=== PATIENT | male | born 1975 | race Caucasian/White ===

== ENCOUNTER 2020-10-09 16:28 | Emergency (ER) | payer OTHER ==
[~2020-10-09] VITALS: Ht 172.7 cm; Wt 90.8 kg
[2020-10-09] MEDS ORDERED: IV NORMAL SALINE 1,000ML 1,000 ML IV ONE (17:15)
[2020-10-09] MEDS ORDERED: KETOROLAC 30 MG/ML VIAL. IVP ONE (17:15)
[2020-10-09] MEDS ORDERED: ONDANSETRON PF 4 MG/2 ML VIAL. IVP ONE (17:15)
[2020-10-09 19:10] LABS: CLARITY,URINE HAZY; COLOR,URINE YELLOW
[2020-10-09 19:11] LABS: BACTERIA,URINE 0 /HPF (0-FEW); BILIRUBIN,URINE NEG (NEG); GLUCOSE,URINE NEG (NEG); NITRITE,URINE NEG (NEG); RBC,URINE 20-40 /HPF (0-2); SQUAMOUS EPITHELIAL CELL,UR OCC /LPF; UROBILINOGEN,URINE 0.2 mg/dL (0.2 mg/dL); WBC,URINE OCC /HPF (0-4)
[2020-10-09] MEDS ORDERED: MORPHINE SULFATE 4 MG/ML DISP.SYRIN. IV ONE ×2 (19:15→21:00)
--- NOTE | 2020-10-09 19:34 | RAD ---
Abdominal and Pelvis CT, Without Contrast: History: Reason: LEFT FLANK PAIN, STONE STUDY / Spl. Instructions: / History: Comparison: None. Procedure: Axial images are obtained of the abdomen and pelvis, without IV or oral contrast. Oral Contrast: No Findings: Evaluation of solid organs is limited without contrast. Liver: Normal. Spleen: Normal. Pancreas: Normal. Adrenal Glands: Normal. Kidneys: There is moderate left hydronephrosis and left hydroureter secondary to a 7 mm stone in the distal left ureter. There are 2 small nonobstructive stones in the left renal pelvis. There is no free air or free fluid. There is no lymphadenopathy. The urinary bladder appears normal. There is no pericolonic inflammation identified. The appendix is normal. The gallbladder is normal. Impression: Moderate left hydronephrosis and left hydroureter secondary to a 7 mm stone in the distal left ureter . End impression PQRS Compliance Statement: One or more of the following individualized dose reduction techniques were utilized for this examinat ion: 1. Automated exposure control 2. Adjustment of the mA and/or kV according to patient size 3. Use of iterative reconstruction technique Electronically signed by: Dillon Jarrett III, MD (10/09/2020 7:31 PM) [facility]
--- NOTE | 2020-10-09 20:05 | PHYS DOC ---
Past History Past Medical History: Kidney Stones (ASHELY DIAZ APRN) Past Surgical History: No Surgical History (ASHELY DIAZ APRN) Alcohol Use: Occasionally (ASHELY DIAZ APRN) Adult General Chief Complaint Chief Complaint: FLANK PAIN HPI HPI Patient is a 45-year-old male presents to the emergency department complaining of started approximately 2:00 this afternoon. Patient states he has a long history of kidney stones and this presentation is similar to his past kidney stone exacerbations. Patient complains of an 8/10 on a 1-10 pain scale. Pat ient states he has nausea but no vomiting. Patient denies abdominal pain. Patient states his pain is located on the left flank and left low back. Patient denies seeing any blood in his urine. Patient denies constipation or diarrhea. Patient denies chest pain or shortness of breath. Patient denies visual changes, denies cough or congestion. Patient states he has no known drug allergies, takes trazodone for sleep disorder. Patient reports a surgical history of bilateral ureter stents, and a hernia repair. Patient reports he has not had a kidney stone flareup for the past 2 years. Patient denies any other physical complaints or physical concerns. (ASHELY DIAZ APRN) Review of Systems Review of Systems 14 body systems of review of systems have been reviewed. See HPI for pertinent positives and negative responses, otherwise all other systems are negative, nonpertinent or noncontributory. (ASHELY DIAZ APRN) Current Medications Current Medications Current Medications Medications (Trade) Dose Ordered Sig/Nazario Start Time Stop Time Status Last Admin Dose Admin Ketorolac Tromethamine (Toradol 30mg Vial) 30 mg 1X ONCE 10/09/20 17:15 10/09/20 17:19 DC 10/09/20 17:24 30 MG Morphine Sulfate (Morphine 4mg Syringe) 4 mg 1X ONCE 10/09/20 19:15 10/09/20 19:34 DC 10/09/20 19:19 4 MG Ondansetron HCl (Zofran) 4 mg 1X ONCE 10/09/20 17:15 10/09/20 17:19 DC 10/09/20 17:24 4 MG Sodium Chloride 1,000 ml @ 1,000 mls/hr 1X ONCE 10/09/20 17:15 10/09/20 18:14 DC 10/09/20 17:24 1,000 MLS/HR (ASHELY DIAZ APRN) Allergies Allergies Allergies Coded Allergies Type Severity Reaction Last Updated Verified No Known Drug Allergies 10/09/20 No (ASHELY DIAZ APRN) Physical Exam Physical Exam Constitutional: Well developed, well nourished, no acute distress, non-toxic appearance. Patient anxious, appears uncomfortable. HENT: Normocephalic, atraumatic, bilateral external ears normal, oropharynx moist, no oral exudates, nose normal. Eyes: PERRLA, EOMI, conjunctiva normal, no discharge. Neck: Normal range of motion, no tenderness, supple, no stridor. Cardiovascular:Heart rate regular rhythm, no murmur, heart sounds S1-S2 to aus cultation. Lungs & Thorax: Bilateral breath sounds clear to auscultation all lung perez, no adventitious lung sounds appreciated. Abdomen: Bowel sounds normal, soft, no tenderness, no masses, no pulsatile masses. Skin: Warm, dry, no erythema, no rash. Back: No midline spinal tenderness appreciated, positive left-sided CVA tenderness, positive left lumbar area tenderness to palpation, left flank pain to palpation. Extremities: No tenderness, no cyanosis, no clubbing, ROM intact, no edema. Neurologic: Alert and oriented X 3, normal motor function, normal sensory function, no focal deficits noted. Psychologic: Affect normal, judgement normal, mood normal. (ASHELY DIAZ APRN) Current Patient Data Vital Signs Vital Signs Date Time Temp Pulse Resp B/P (MAP) Pulse Ox O2 Delivery O2 Flow Rate FiO2 10/09/20 19:19 16 98 10/09/20 17:04 99.0 61 179/110 (133) Room Air Lab Results Laboratory Tests Test 10/09/20 18:29 Urine Collection Type Unknown Urine Color Yellow Urine Clarity Hazy Urine pH 7.0 Urine Specific Rogers 1.025 Urine Protein 30 mg/dl (NEG-TRACE) Urine Glucose (UA) Neg mg/dL (NEG) Urine Ketones (Stick) Trace mg/dL (NEG) Urine Blood Large (NEG) Urine Nitrite Neg (NEG) Urine Bilirubin Neg (NEG) Urine Urobilinogen Dipstick 0.2 mg/dL (0.2 mg/dL) Urine Leukocyte Esterase Neg (NEG) Urine RBC 20-40 /HPF (0-2) Urine WBC Occ /HPF (0-4) Urine Squamous Epithelial Cells Occ /LPF Urine Bacteria 0 /HPF (0-FEW) (ASHELY DIAZ APRN) EKG EKG [] (ASHELY DIAZ APRN) Radiology/Procedures Radiology/Procedures PATIENT: WIL LUZ ACCOUNT: [id number] : 1975 LOCATION: ER AGE: 45 SEX: M EXAM STATUS: REG ER ORD. PHYSICIAN: ASHELY DIAZ APRN REASON: LEFT FLANK PAIN, STONE STUDY PROCEDURE: CT ABDOMEN PELVIS WO CONTRAST Abdominal and Pelvis CT, Without Contrast: History: Reason: LEFT FLANK PAIN, STONE STUDY / Spl. Instructions: / History: Comparison: None. Procedure: Axial images are obtained of the abdomen and pelvis, without IV or oral contrast. Oral Contrast: No Findings: Evaluation of solid organs is limited without contrast. Liver: Normal. Spleen: Normal. Pancreas: Normal. Adrenal Glands: Normal. Kidneys: There is moderate left hydronephrosis and left hydroureter secondary to a 7 mm stone in the distal left ureter. There are 2 small nonobstructive stones in the left renal pelvis. There is no free air or free fluid. There is no lymphadenopathy. The urinary bladder appears normal. There is no pericolonic inflammation identified. The appendix is normal. The gallbladder is normal. Impression: Moderate left hydronephrosis and left hydroureter secondary to a 7 mm stone in the distal left ureter. End impression PQRS Compliance Statement: One or more of the following individualized dose reduction techniques were utilized for this examination: 1. Automated exposure control 2. Adjustment of the mA and/or kV according to patient size 3. Use of iterative reconstruction technique Electronically signed by: Mckenzie Liang III, MD (10/09/2020 7:31 PM) [facility] DICTATED AND SIGNED BY: MCKENZIE LIANG III, MD DATE: 10/09/201927 CC: ASHELY DIAZ APRN; PCP,NO ~MTH0 0 (ASHELY DIAZ APRN) Heart Score C/O Chest Pain: No Risk Factors: Risk Factors: DM, Current or recent (<one month) smoker, HTN, HLP, family history of CAD, obesity. Risk Scores: Risk Factors: DM, Current or recent (<one month) smoker, HTN, HLP, family history of CAD, obesity. (ASHELY DIAZ APRN) Course & Med Decision Making Course & Med Decision Making Pertinent Labs and Imaging studies reviewed. (See chart for details) 45-year-old male, vital signs reviewed, presents emergency department concerning for kidney stone pain. Physical examination was consistent with kidney stone pain. CBC, CMP, urinalysis was ordered, saline lock, 1 L normal saline, 4 mg IV Zofran, 30 mg IV Toradol given for 8/10 pain on a 1-10 pain scale. Patient's urine showed large amount of blood, CT abdomen pelvis without contrast for stone study was ordered. Upon reevaluation of the patient, patient reports his pain is down to a 5/10. Will give 4 mg of morphine IV. CT abdomen pelvis concerning for hydroureter, hydronephrosis, 7 mm stone in the distal left ureter per house radiologist interpretation. Upon reevaluation of the patient, patient states his pain is still about a 5/10. Will give 4 mg of morphine IV. Upon reevaluation of the patient, patient states his pain is still about a 5/10. Discussed with patient admission to hospital related to size of stone being 7 mm and intractable pain. Patient's labs were otherwise unremarkable. Patient is amendable to admission to hospital. Called and discussed patient case with transfer line, Shawn from transfer line stated he would report case with on-call urologist at [facility] and will return call soon. The patient's CT images were placed on the cloud by radiology for [facility] to review. Discusse with patient admission to [facility], patient is amenable to this plan. Patient reports his pain is still a 5/10 pain, will give 1 mg Dilaudid IV. transfer center Finish Cleaner Shawn called back and advised urologist specialist Dr. BRADFORD from [facility] has accepted patient in transfer for admission for left hydronephrosis with hydroureter and distal 7 mm stone. EMTALA forms and transfer forms were reviewed and signed by ED attending Dr. Lorenzo. Patient will be transferred to [facility] hospital. (ASHELY DIAZ APRN) Course & Med Decision Making Did not see or evaluate patient. Discussed patient with ARCHITECTURE TECHNICIAN. Agree with ARCHITECTURE TECHNICIAN's work-up and disposition. (MARGARITA LORENZO MD) Dragon Disclaimer Dragon Disclaimer This electronic medical record was generated, in whole or in part, using a voice recognition dictation system. (ASHELY DIAZ APRN) Departure Departure: Impression: Primary Impression: Hydronephrosis Additional Impressions: Hydroureter, left Kidney stone on left side Disposition: 02 DC/TRF OTHER SHORT TERM HOS (Patient admitted to [facility], Dr. BRADFORD has accepted patient in transfer.) Condition: STABLE Referrals: PCP,NO (PCP) Problem Qualifiers Primary Impression: Hydronephrosis Hydronephrosis type: with renal calculous obstruction Qualified Codes: N13.2 - Hydronephrosis with renal and ureteral calculous obstruction ASHELY DIAZ APRN Oct 09, 2020 20:05 MARGARITA LORENZO MD Oct 09, 2020 22:06
[2020-10-09 20:18] LABS: CREATININE 0.9 mg/dL (0.7-1.3); GFR 92.1; POTASSIUM 3.5 mmol/L (3.5-5.1)
[2020-10-09 20:24] LABS: ALBUMIN/GLOBULIN RATIO 1.2 (1.0-1.7); TOTAL BILIRUBIN 0.4 mg/dL (0.2-1.0); TOTAL PROTEIN 7.4 g/dL (6.4-8.2)
[2020-10-09 20:28] LABS: BASO % 1 % (0-3); EOS # 0.3 x10^3/uL (0.0-0.7); EOS % 3 % (0-3); HEMATOCRIT 43.5 % (39.0-53.0); HEMOGLOBIN 14.6 g/dL (13.0-17.5); LYMPH % 23 % (24-48); MEAN CORPUSCULAR HEMOGLOBIN 29 pg (25-35); MEAN CORPUSCULAR HGB CONC 34 g/dL (31-37); MEAN CORPUSCULAR VOLUME 86 fL (79-100); MONO # 0.6 x10^3/uL (0.0-1.1); MONO % 6 % (0-9); NEUT # 5.9 x10^3uL (1.8-7.7); NEUT % 67 % (31-73); PLATELET COUNT 248 x10^3/uL (140-400); RED BLOOD COUNT 5.05 x10^6/uL (4.30-5.70); RED CELL DISTRIBUTION WIDTH 13.2 % (11.5-14.5); WHITE BLOOD COUNT 8.7 x10^3/uL (4.0-11.0)
[2020-10-09] MEDS ORDERED: HYDROmorphone PF 1 MG/ML DISP.SYRIN IVP ONE (21:45)
[2020-10-09] MEDS ORDERED: HYDROmorphone PF 1 MG/ML DISP.SYRIN ONE (21:54)
[2020-10-09 22:11] VITALS: BP 158/88
== END 2020-10-09 23:05 | disposition short-term general hospital (02) ==
LOC: ER 16:28
DX: N13.2 Hydronephrosis with renal and ureteral calculous obstruction (principal)
CPT/HCPCS: 36415; 74176; 80053; 81001; 85025; 96361; 96374; 96375; 96376; 99284; J1170; J1885; J2270; J2405; J7030

== ENCOUNTER 2021-05-01 17:40 | Inpatient (IN) | payer OTHER ==
[~2021-05-01] VITALS: Ht 170.2 cm; Wt 91.9 kg
--- NOTE | 2021-05-01 18:01 | PHYS DOC ---
Past History Past Medical History: Kidney Stones Past Surgical History: No Surgical History Alcohol Use: Occasionally General Adult HPI: HPI: ".. I got diagnosis of COVID on the 04/24.. But I am not doing any better..." Patient is a 46 year old male who presents with above hx and coughing, diarrhea, malasie , subject fever, arthralgia , myalgia. Hx. COVID + 20th. Patient recently had a trip to [place]. Patient denies any history immunosuppression, did not get COVID vaccination this season. Patient has not gotten the flu vaccination this season. Patient denies any history of immunosuppression. Patient does vape. Patient denies any previous health history issues. Patient is mildly hypoxic on room air 80s. P:t. follows with Dr. Jackson. Review of Systems: Review of Systems: Constitutional: Subjective complaints of fever or chills Eyes: Denies change in visual acuity HENT: Denies nasal congestion or sore throat Respiratory: Complains of a nonproductive cough and shortness of breath Cardiovascular: Denies chest pain or edema GI: Denies abdominal pain, nausea, vomiting, bloody stools or diarrhea : Denies dysuria Musculoskeletal: Denies back pain or joint pain. Complains of generalized fatigue Integument: Denies rash Neurologic: Denies headache, focal weakness or sensory changes Endocrine: Denies polyuria or polydipsia Lymphatic: Denies swollen glands Psychiatric: Denies depression or anxiety Family History: Family History: Noncontributory to presentation Current Medications: Current Meds: See nursing for home meds Allergies: Allergies: Allergies Coded Allergies Type Severity Reaction Last Updated Verified No Known Drug Allergies 10/09/20 No Physical Exam: PE: Constitutional: Moderate acute distress, non-toxic appearance. [] HENT: Normocephalic, atraumatic, bilateral external ears normal, oropharynx moist, no oral exudates, nose swollen turbinates and clear rhinorrhea Eyes: PERRLA, EOMI, conjunctiva normal, no discharge. [] Neck: Normal range of motion, no tenderness, supple, no stridor. [] Cardiovascular:Tachycardia Heart rate regular rhythm, no murmur [] Lungs & Thorax: Bilateral breath sounds equal apex with scattered wheezes on auscultation [] does have a nonproductive cough Abdomen: Bowel sounds normal, soft, no tenderness, no masses, no pulsatile masses. [] Skin: Warm, dry, no erythema, no rash. [] Back: No tenderness, no CVA tenderness. [] Extremities: No tenderness, no cyanosis, no clubbing, ROM intact, no edema. [] No cording appreciated Neurologic: Alert and oriented X 3, normal motor function, normal sensory function, no focal deficits noted. [] Psychologic: Affect anxious, judgement normal, mood normal. [] EKG: EKG: My interpretation EKG shows a sinus rhythm at 83 bpm no acute morphology. Time of EKG is 1821 hrs. [] Radiology/Procedures: Radiology/Procedures: [place] [address] IMAGING REPORT Signed PATIENT: WIL LUZ ACCOUNT: [id number] : 1975 LOCATION: ER AGE: 46 SEX: M EXAM STATUS: REG ER ORD. PHYSICIAN: EVA BOCANEGRA MD REASON: +COVID 04/24. C/P, chills, SOB Omni 350 100cc PROCEDURE: CT ANGIOGRAPHY CHEST EXAM: CT chest with contrast - pulmonary embolus protocol CLINICAL HISTORY: Reason: +COVID 04/24. C/P, chills, SOB Omni 350 100cc / Spl. Instructions: / History: . COMPARISON: Similar chest radiograph TECHNIQUE: CT of the chest following the administration of 100 cc of Omni intravenous contrast during the pulmonary arterial phase. Axial, coronal and sagittal reformatted images were generated including MIP images. ---PQRS compliance statement - One or more of the following individualized dose reduction techniques were utilized for this study: 1. Automated exposure control 2. Adjustment of the mA and/or kV according to patient size 3. Use of iterative reconstruction technique--- FINDINGS: CHEST: Diagnostic quality: Adequate. Pulmonary emboli: No pulmonary emboli to the level of the segmental branches. More peripheral vessels are not well assessed. Right heart strain: None Pulmonary arteries: Normal in caliber. Thyroid gland is unremarkable. No pathologically enlarged supraclavicular or axillary adenopathy. Heart size is normal. No pericardial effusion. No pathologically enlarged mediastinal or hilar lymph nodes. The central airway is patent. Esophagus is unremarkable. There are scattered bilateral patchy and confluent glass and consolidative opacities. No pneumothorax or pleural effusion. Visualized Upper abdomen: Visualized portions of the upper abdomen are unremarkable. Bones: No evidence of acute or suspicious osseous abnormality. IMPRESSION: 1. No evidence of pulmonary embolism to the level of the segmental pulmonary arteries. 2. Multifocal airspace disease consistent with known Covid pneumonia Electronically signed by: Geraldo Aguilar DO (05/01/2021 8:40 PM) [facility] DICTATED AND SIGNED BY: GERALDO AGUILAR DO DATE: 05/01/212028 CC: GRISEL JACKSON MD; EVA BOCANEGRA MD ~MTH0 0 [][place] [address] IMAGING REPORT Signed PATIENT: WIL LUZ ACCOUNT: [id number] : 1975 LOCATION: ER AGE: 46 SEX: M EXAM STATUS: REG ER ORD. PHYSICIAN: EVA BOCANEGRA MD REASON: coughing, COVID PROCEDURE: PORTABLE CHEST 1V EXAMINATION: Chest radiograph. VIEWS: Single AP view of the chest COMPARISON: None INDICATION:46 years, Male, Covid. FINDINGS: Normal cardiomediastinal silhouette. Scattered patchy and confluent bilateral airspace opacities predominantly the middle and lower lobes. No pleural effusion or pneumothorax. No acute osseous process. IMPRESSION: Findings consistent with multifocal atypical viral pneumonia Electronically signed by: Geraldo Aguilar DO (05/01/2021 6:25 PM) [facility] DICTATED AND SIGNED BY: GERALDO AGUILAR DO DATE: 05/01/211823 CC: GRISEL JACKSON MD; EVA BOCANEGRA MD ~MTH0 0 Heart Score: C/O Chest Pain: No HEART Score for Chest Pain: HEART Score for Chest Pain Response (Comments) Value History Slighlty/Non-Suspicious 0 ECG Normal 0 Age < 45 0 Risk Factors 1 or 2 Risk Factors 1 Troponin < Normal Limit 0 Total 1 Risk Factors: Risk Factors: DM, Current or recent (<one month) smoker, HTN, HLP, family histo ry of CAD, obesity. Risk Scores: Score 0 - 3: 2.5% MACE over next 6 weeks - Discharge Home Score 4 - 6: 20.3% MACE over next 6 weeks - Admit for Clinical Observation Score 7 - 10: 72.7% MACE over next 6 weeks - Early Invasive Strategies Course & Med Decision Making: Course & Med Decision Making Pertinent Labs and Imaging studies reviewed. (See chart for details) Discussed presentation, testing and tx plan with Dr. Dupree - advised to admit to his service and start Remdesivir. Order by pharmacy at time of admit. Nursing supervisor contact and service clerks- she did nok know how to mix it, and would have to wait until morning. Nursing supervisor contact and service clerks agree to check pharmacy. No Remdesivir found. Call placed to [facility] pharmacy- plan they will mix it and quick silver to transport to [place]. 0300 hrs. Pharmacy at [facility] advised picked up medication at 3:40 AM for transport to [place]. Impression: 1. COVID Pneumonia 2. Elevated AST 150 and ALT 176 3. Leukopenia 3.3 4. Anemia 127 5 Elevated Lipase 449 6.Elevated D-dimer 0.74 7. Respiratory Failure - Hypoxi 8. Elevated CK = 2,254 [] Dragon Disclaimer: Dragon Disclaimer: This electronic medical record was generated, in whole or in part, using a voice recognition dictation system. Departure Departure: Referrals: GRISEL JACKSON MD (PCP) Attending Signature Attending Signature I have participated in the care of this patient and I have reviewed and agree with all pertinent clinical information above including history, exam, and recommendations. EVA BOCANEGRA MD May 01, 2021 18:01
[2021-05-01] MEDS ORDERED: KETOROLAC 30 MG/ML VIAL. IVP ONE (18:15)
[2021-05-01] MEDS ORDERED: IV RINGERS SOLUTION,LACTATED 1,000 ML IV SCH (18:15)
[2021-05-01] MEDS ORDERED: ALBUTEROL SULFATE 8GM INHALER. INH ONE (18:15)
--- NOTE | 2021-05-01 18:27 | RAD ---
EXAMINATION: Chest radiograph. VIEWS: Single AP view of the chest COMPARISON: None INDICATION:46 years, Male, Covid. FINDINGS: Normal cardiomediastinal silhouette. Scattered patchy and confluent bilateral airspace opacities pred ominantly the middle and lower lobes. No pleural effusion or pneumothorax. No acute osseous process. IMPRESSION: Findings consistent with multifocal atypical viral pneumonia Electronically signed by: Douglas Aguilar DO (05/01/2021 6:25 PM) [facility]
--- NOTE | 2021-05-01 18:39 | EKG ---
[address] [address] Test Date: 2021-05-01 Test Time: 18:21:48 Pat Name: WIL LUZ Department: Room: Gender: M Steward/Stewardess Second Class: [place] : 1975 Requested By: EVA BOCANEGRA Order Number: [id number] Reading MD: Kaushik Estevez Measurements Intervals [place] Rate: 83 P: 55 NC: 130 QRS: 20 QRSD: 82 T: 29 QT: 362 QTc: 426 Interpretive Statements SINUS RHYTHM NORMAL ECG RI6.02 No previous ECG available for comparison Electronically Signed On 05-03-2021 13:33:27 CDT by Kaushik Estevez
[2021-05-01 19:11] LABS: BASO % 0 % (0-3); EOS % 0 % (0-3); HEMATOCRIT 38.7 % (39.0-53.0); HEMOGLOBIN 12.7 g/dL (13.0-17.5); LYMPH # 0.7 x10^3/uL (1.0-4.8); LYMPH % 20 % (24-48); MEAN CORPUSCULAR HEMOGLOBIN 27 pg (25-35); MEAN CORPUSCULAR HGB CONC 33 g/dL (31-37); MEAN CORPUSCULAR VOLUME 83 fL (79-100); MONO # 0.1 x10^3/uL (0.0-1.1); MONO % 4 % (0-9); NEUT # 2.5 x10^3uL (1.8-7.7); NEUT % 75 % (31-73); PLATELET COUNT 181 x10^3/uL (140-400); RED BLOOD COUNT 4.64 x10^6/uL (4.30-5.70); RED CELL DISTRIBUTION WIDTH 13.5 % (11.5-14.5); WHITE BLOOD COUNT 3.3 x10^3/uL (4.0-11.0)
[2021-05-01 19:20] LABS: CALCIUM 8.2 mg/dL (8.5-10.1); CREATININE 0.9 mg/dL (0.7-1.3); GFR 91.7; POTASSIUM 3.9 mmol/L (3.5-5.1)
[2021-05-01 19:21] LABS: BARBITURATES NEG (NEG); BENZODIAZEPINES NEG (NEG); CANNABINOIDS POS (NEG); COCAINE NEG (NEG); METHADONE NEG (NEG); OPIATES POS (NEG); PHENCYCLIDINE NEG (NEG)
[2021-05-01 19:23] LABS: BGAS PH 7.43 (7.35-7.46)
[2021-05-01 19:26] LABS: BACTERIA,URINE 0 /HPF (0-FEW); BILIRUBIN,URINE NEG (NEG); CLARITY,URINE CLEAR; COLOR,URINE YELLOW; GLUCOSE,URINE NEG (NEG); NITRITE,URINE NEG (NEG); RBC,URINE RARE /HPF (0-2); SQUAMOUS EPITHELIAL CELL,UR OCC /LPF; UROBILINOGEN,URINE 0.2 mg/dL (0.2 mg/dL); WBC,URINE OCC /HPF (0-4)
[2021-05-01 19:30] LABS: AMPHETAMINE/METHAMPHETAMINE NEG (NEG)
[2021-05-01] MEDS ORDERED: IOHEXOL 350 MG/ML 100 ML VIAL. IV ONE (19:30)
[2021-05-01] MEDS ORDERED: ENOXAPARIN ** NOTE DOSE ** SYRINGE SQ ONE (19:30)
[2021-05-01 19:34] LABS: ALBUMIN 3.4 g/dL (3.4-5.0); DIRECT BILIRUBIN 0.1 mg/dL (0.0-0.2); MAGNESIUM 1.8 mg/dL (1.8-2.4); TOTAL BILIRUBIN 0.2 mg/dL (0.2-1.0); TOTAL PROTEIN 7.3 g/dL (6.4-8.2)
--- NOTE | 2021-05-01 20:42 | RAD ---
EXAM: CT chest with contrast - pulmonary embolus protocol CLINICAL HISTORY: Reason: +COVID 04/24. C/P, chills, SOB Omni 350 100cc / Spl. Instructions: / His tory: . COMPARISON: Similar chest radiograph TECHNIQUE: CT of the chest following the administration of 100 cc of Omni intravenous contrast during the pulmonary arterial phase. Axial, coronal and sagittal reformatted images were generated includin g MIP images. ---PQRS compliance statement - One or more of the following individualized dose reduction techniques were utilized for this study: 1. Automated exposure control 2. Adjustment of the mA and/or kV according to patient size 3. Use of iterative reconstruction technique--- FINDINGS: CHEST: Diagnostic quality: Adequate. Pulmonary emboli: No pulmonary emboli to the level of the segmental branches. More peripheral vessel s are not well assessed. Right heart strain: None Pulmonary arteries: Normal in caliber. Thyroid gland is unremarkable. No pathologically enlarged supraclavicular or axillary adenopathy. Hea rt size is normal. No pericardial effusion. No pathologically enlarged mediastinal or hilar lymph nod es. The central airway is patent. Esophagus is unremarkable. There are scattered bilateral patchy and confluent glass and consolidative opacities. No pneumothorax or pleural effusion. Visualized Upper abdomen: Visualized portions of the upper abdomen are unremarkable. Bones: No evidence of acute or suspicious osseous abnormality. IMPRESSION: 1. No evidence of pulmonary embolism to the level of the segmental pulmonary arteries. 2. Multifocal airspace disease consistent with known Covid pneumonia Electronically signed by: Douglas Aguilar DO (05/01/2021 8:40 PM) [facility]
[2021-05-01] MEDS ORDERED: ONDANSETRON PF 4 MG/2 ML VIAL. IVP PRN (21:15)
[2021-05-01] MEDS ORDERED: ACETAMINOPHEN 325 MG TABLET PO PRN (21:15)
[2021-05-02] MEDS ORDERED: BUSP30TA PO (00:24)
[2021-05-02] MEDS ORDERED: LISI10TA16 PO (00:24)
[2021-05-02] MEDS ORDERED: HYDR50TA PO (00:24)
[2021-05-02] MEDS ORDERED: TRAZ-125 PO ×2 (00:24→19:42)
[2021-05-02] MEDS ORDERED: PRAZ1CAP2 PO (00:24)
[2021-05-02] MEDS ORDERED: SERT25TA PO (00:24)
[2021-05-02] MEDS ORDERED: KETOROLAC 30 MG/ML VIAL. IVP ONE (00:45)
[2021-05-02] MEDS ORDERED: diphenhydrAMINE 50 MG/ML VIAL IVP ONE (01:00)
[2021-05-02] MEDS ORDERED: REMDESIVIR LOAD in IV NORMAL SALINE 250ML TV IV ONE (01:00)
[2021-05-02] MEDS ORDERED: PROCHLORPERAZINE 10 MG/2 ML VIAL. IV ONE (01:00)
[2021-05-02] MEDS ORDERED: PRAZOSIN 1 MG CAPSULE. PO SCH (04:26)
[2021-05-02] MEDS ORDERED: traZODone 50 MG TABLET. PO ONE (04:30)
[2021-05-02] MEDS: ALBUTEROL SULFATE 8GM INHALER. INH SCH ×4 (09:00→20:30)
[2021-05-02 09:17] LABS: CALCIUM 7.8 mg/dL (8.5-10.1); CREATININE 0.9 mg/dL (0.7-1.3); GFR 91.7; POTASSIUM 3.8 mmol/L (3.5-5.1)
[2021-05-02 09:19] LABS: BASO % 0 % (0-3); EOS % 0 % (0-3); HEMATOCRIT 36.4 % (39.0-53.0); HEMOGLOBIN 11.9 g/dL (13.0-17.5); LYMPH # 0.6 x10^3/uL (1.0-4.8); LYMPH % 17 % (24-48); MEAN CORPUSCULAR HEMOGLOBIN 27 pg (25-35); MEAN CORPUSCULAR HGB CONC 33 g/dL (31-37); MEAN CORPUSCULAR VOLUME 83 fL (79-100); MONO # 0.2 x10^3/uL (0.0-1.1); MONO % 5 % (0-9); NEUT # 2.8 x10^3uL (1.8-7.7); NEUT % 78 % (31-73); PLATELET COUNT 174 x10^3/uL (140-400); RED CELL DISTRIBUTION WIDTH 13.4 % (11.5-14.5); WHITE BLOOD COUNT 3.6 x10^3/uL (4.0-11.0)
[2021-05-02] MEDS ORDERED: IV RINGERS SOLUTION,LACTATED 1,000 ML IV ONE (15:45)
[2021-05-02] MEDS ORDERED: DIPHENOXYLATE/ATROPINE TABLET. PO ONE (15:45)
[2021-05-02] MEDS ORDERED: ONDANSETRON PF 4 MG/2 ML VIAL. IVP PRN (17:45)
[2021-05-02 18:46] VITALS: BP 142/71
--- NOTE | 2021-05-02 18:56 | NUR ---
The patient, WIL LUZ, 46 y/o, M admitted by PAYAM MARINA MD, was given written information regarding hospital policies, unit procedures and contact persons. Valuables were checked and recorded. Patient is alert and oriented. Currently in the bed with side rails up X's 2 with call light in reach. [facility]
[2021-05-02] MEDS: ACETAMINOPHEN 325 MG TABLET PO PRN (18:58)
[2021-05-02 19:35] VITALS: BP 136/70
[2021-05-02] MEDS ORDERED: HYDR25TA PO (19:42)
[2021-05-02] MEDS ORDERED: BUSP5TAB PO (19:42)
[2021-05-02] MEDS ORDERED: LISI20TA18 PO (19:42)
[2021-05-02] MEDS ORDERED: PRAZ2CAP2 PO (19:42)
[2021-05-02] MEDS ORDERED: SERT50TA PO (19:42)
[2021-05-02 20:00] VITALS: BP 124/71
[2021-05-02] MEDS ORDERED: CHOLECALCIFEROL (VITAMIN D3) 50,000 UNIT CAPSULE PO SCH (20:00)
[2021-05-02] MEDS ORDERED: DEXAMETHASONE SOD PHOS 10 MG/ML VIAL. IVP ONE (20:00)
[2021-05-02] MEDS ORDERED: AZITHROMYCIN 500 MG in IV NORMAL SALINE 250ML 250 ML IV ONE (20:00)
[2021-05-02] MEDS: IV RINGERS SOLUTION,LACTATED 1,000 ML IV SCH (20:28)
[2021-05-02] MEDS: ENOXAPARIN 40 MG/0.4 ML SYRINGE. SQ SCH (20:29)
[2021-05-02] MEDS: PRAZOSIN 1 MG CAPSULE. PO SCH (20:29)
[2021-05-02] MEDS: ASCORBIC ACID 1,000 MG TABLET PO SCH (20:29)
[2021-05-02] MEDS: FAMOTIDINE 20 MG TABLET PO SCH (20:29)
[2021-05-02] MEDS: busPIRone 5 MG TABLET. PO SCH (20:29)
[2021-05-02] MEDS ORDERED: AZITHROMYCIN 250 MG TABLET. PO ONE (20:30)
[2021-05-02] MEDS: hydrOXYzine HCL 25 MG TABLET PO SCH (20:30)
[2021-05-02] MEDS: traZODone 100 MG TABLET. PO SCH (20:30)
--- NOTE | 2021-05-02 21:00 | NUR ---
Pt awake in bed at change of shift, recently admitted to unit from ER after being a ER hold for almost 24hrs. Pt is A&Ox4, able to answer questions appropriately. Pt was recently in [place] for Etoh rehab and returned back to [place] on 04/19. A few days after his return he developed fevers, SOA, N/V, loss of taste and diarrhea. Pt was tested for Covid and found to be positive on 04/24. Admission assessment completed. Pt with 102.6 fever noted at change of shift, PRN Tylenol given with improvement noted. Pt currently on 4L of O2 to keep sat >92%. Dr Dupree called for admission orders. Pt started on antibiotics (Zithromax & Rocephin), IV Dexamethasone, Lovenox and Remdesivir. Home medications reordered. Pt noted to have productive cough and c/o SOA with minimal activity. Pt ate HS snack independently and took HS medications without difficulty. Pt lives at home with his 2 dogs in apartment. Pt did not receive his Covid vaccine or had his flu shot yet this year. Pt denies smoking cigarettes but dose admit to marijuana use. Lovenox for VTE. CM and Dietary consulted. POC reviewed with pt, understanding verbalized.
[2021-05-02 21:05] VITALS: BP 127/76
[2021-05-02] MEDS: REMDESIVIR 100mg in NORMAL SALINE 250ML X 4 DAYS IV SCH (21:16)
[2021-05-02 22:00] VITALS: BP 107/63
[2021-05-03] VITALS (7 sets, daily range): BP systolic 103–145; BP diastolic 65–85
[2021-05-03 06:12] LABS: BASO % 0 % (0-3); EOS % 0 % (0-3); HEMATOCRIT 37.1 % (39.0-53.0); HEMOGLOBIN 12.1 g/dL (13.0-17.5); LYMPH # 0.4 x10^3/uL (1.0-4.8); LYMPH % 9 % (24-48); MEAN CORPUSCULAR HEMOGLOBIN 27 pg (25-35); MEAN CORPUSCULAR HGB CONC 33 g/dL (31-37); MEAN CORPUSCULAR VOLUME 83 fL (79-100); MONO # 0.2 x10^3/uL (0.0-1.1); MONO % 4 % (0-9); NEUT # 4.1 x10^3uL (1.8-7.7); NEUT % 87 % (31-73); PLATELET COUNT 209 x10^3/uL (140-400); RED BLOOD COUNT 4.49 x10^6/uL (4.30-5.70); RED CELL DISTRIBUTION WIDTH 13.5 % (11.5-14.5); WHITE BLOOD COUNT 4.7 x10^3/uL (4.0-11.0)
[2021-05-03 06:30] LABS: ALBUMIN 2.7 g/dL (3.4-5.0); ALBUMIN/GLOBULIN RATIO 0.7 (1.0-1.7); CALCIUM 8.1 mg/dL (8.5-10.1); CREATININE 0.9 mg/dL (0.7-1.3); GFR 91.7; POTASSIUM 4.1 mmol/L (3.5-5.1); TOTAL BILIRUBIN 0.2 mg/dL (0.2-1.0); TOTAL PROTEIN 6.4 g/dL (6.4-8.2)
[2021-05-03] MEDS: IV RINGERS SOLUTION,LACTATED 1,000 ML IV SCH (06:41)
[2021-05-03] MEDS: ALBUTEROL SULFATE 8GM INHALER. INH SCH ×4 (09:00→20:01)
[2021-05-03] MEDS: AZITHROMYCIN 250 MG TABLET. PO SCH (10:26)
[2021-05-03] MEDS: SERTRALINE 50 MG TABLET. PO SCH (10:27)
[2021-05-03] MEDS: ASCORBIC ACID 1,000 MG TABLET PO SCH (10:27)
[2021-05-03] MEDS: LISINOPRIL 20 MG TABLET PO SCH (10:27)
[2021-05-03] MEDS: BUDESONIDE 0.5 MG/2 ML NEBU NEB SCH ×2 (10:30→18:39)
[2021-05-03] MEDS: busPIRone 5 MG TABLET. PO SCH ×3 (10:30→20:03)
[2021-05-03] MEDS: FAMOTIDINE 20 MG TABLET PO SCH ×2 (10:31→20:02)
[2021-05-03] MEDS: hydrOXYzine HCL 25 MG TABLET PO SCH ×3 (10:31→20:03)
[2021-05-03] MEDS: DEXAMETHASONE SOD PHOS 10 MG/ML VIAL. IV SCH (10:32)
--- NOTE | 2021-05-03 17:28 | HP ---
DATE OF SERVICE: 05/03/2021 ADMIT DATE: 05/01/2021 HISTORY OF PRESENT ILLNESS: The patient is a 46-year-old male patient, who came back recently from [place] where he was in an alcohol and anger management rehabilitation center. He arrived here on 04/19/2021. On 04/24/2021, he developed fever, chills, body ache, nausea and vomiting, loss of taste and smell and was tested positive for COVID-19 and ____ Dr. Rebollar. Apparently on the same day, his symptoms have worsened about 5 days ago and developed cough, phlegm, and shortness of breath. His temperature went up to 103. He came on 05/01/2021, and was evaluated in the Emergency Room and he was there on hold for almost 20 hours as there were no beds available and eventually was admitted to [facility] ICU. He was extensively investigated in the Emergency Room and has had lab work, blood gases as well as chemistry together with imaging studies. His D-dimer was slightly elevated at 0.74. His chemistry was mostly unremarkable. He did have slightly elevated serum lipase and a CT angio of the chest showed no evidence of pulmonary emboli. He has multifocal airspace disease consistent with known COVID pneumonia. He was started on IV antibiotic in the form of Zithromax, ceftriaxone as well as dexamethasone and remdesivir and Lovenox together with his other psychotropic medication. PAST MEDICAL HISTORY: Significant for hypertension, recurrent renal stone formation requiring lithotripsy, has alcoholism, and has had also multiple suicidal attempts before including he tried to hang himself, tried Tylenol and tried to shoot himself by gun. Significant for posttraumatic stress disorder and depression. 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 He has left knee surgery and wisdom tooth extraction. ALLERGIES: He has no known drug allergies. MEDICATIONS: He was on the following medications: He is on prazosin 2 mg at bedtime, lisinopril 20 mg daily. He is on sertraline 50 mg daily, trazodone 100 mg at bedtime, buspirone 7.5 mg 2 times a day, and hydroxyzine 50 mg ____ times a day. REVIEW OF SYSTEMS: As per history of present illness. FAMILY HISTORY: He has 1 sister alive and older and has also some psych issues. His father at age of 65 because of congestive heart failure and diabetes. His mother is alive at the age of 64 and has multiple medical problems. SOCIAL HISTORY: He is single, never , has no children. He never smoked, does not drink alcohol; however, he smokes marijuana on a daily basis. PHYSICAL EXAMINATION: GENERAL: On arrival to the Emergency Room, he was febrile, temperature of 103.5. VITAL SIGNS: His heart rate was 87, blood pressure 147/72, temperature was 103.5, respiratory rate 22, and oxygen saturation was 93% on 3 liters of oxygen. HEAD, EYES, EARS, NOSE, AND THROAT: Normocephalic, atraumatic. NECK: Supple. HEART: Showed normal first and second heart sounds. No gallop, rub or murmur. CHEST: Showed central trachea, equal bilateral chest expansion, air entry, vesicular breath sounds with crepitation mostly on the right side posteriorly. I could not appreciate any rhonchi. ABDOMEN: Distended, soft, nontender. NEUROLOGIC: He was grossly intact. LABORATORY DATA: On admission showed with a white cell count of 3300, hemoglobin 12.7, hematocrit 38.7, MCV 83, and platelet count of 181,000 with normal manual differential. His prothrombin time was 10, INR of 1, APTT 30, and D-dimer was 0.74. His serum sodium was 140, potassium 3.9, chloride 102, bicarbonate 30, anion gap of 8, BUN 13, creatinine 0.9. Estimated GFR was 91 mL per minute. His glucose was 85, calcium was 8.2, magnesium was 1.8. Total bilirubin were normal; however, AST, ALT elevated. Alkaline phosphatase is normal. CK was 2254. Beta-natriuretic peptide was only 13. Total protein 7.3, albumin was 3.4 and serum lipase was 449. Urinalysis essentially unremarkable and tox screen was positive for opiates and cannabinoids. His chest x-ray showed normal cardiomediastinal silhouette, scattered patchy and confluent bilateral airspace opacities, predominantly the middle and lower lobe. He did have a CT angio of the chest, which basically showed no evidence of pulmonary embolism to the level of the segmental pulmonary arteries, multifocal airspace disease consistent with known COVID pneumonia. ASSESSMENT AND PLAN: The patient was admitted with COVID-19 pneumonia, acute hypoxic respiratory failure. He was treated with steroids and remdesivir antibiotic. He was on hold in the Emergency Room for almost 20 hours and finally, he was admitted to ICU in [facility]. We will obviously continue with all these medications as well as all his psychotropic medication and evaluate him on a daily basis. KIRBY/FARRUKH DR: Shraddha TID: [id number]
[2021-05-03] MEDS: PRAZOSIN 1 MG CAPSULE. PO SCH (20:02)
[2021-05-03] MEDS: ACETAMINOPHEN 325 MG TABLET PO PRN (20:03)
[2021-05-03] MEDS: traZODone 100 MG TABLET. PO SCH (20:03)
[2021-05-03] MEDS: ENOXAPARIN 40 MG/0.4 ML SYRINGE. SQ SCH (20:04)
[2021-05-03] MEDS: REMDESIVIR 100mg in NORMAL SALINE 250ML X 4 DAYS IV SCH (20:57)
[2021-05-04] VITALS (7 sets, daily range): BP systolic 132–145; BP diastolic 73–84
--- NOTE | 2021-05-04 05:10 | NUR ---
Pt awake in bed at change of shift watching TV. Pt is A&Ox4, pleasant and cooperative with care and assessments. Pt still with productive cough but stated that he "feeling less short of breath with movement." Pt ate HS snack independently and took HS medications without difficulty. Pt enjoyed playing card game with staff member before bed. Pt slept great during night, maintained O2 sat >92% on 5L high flow NC. Pt up 3 times during shift to use bathroom, only had 1 loose stool. Pt stated that he feels better then previous few days. No fever noted during shift. Pt hopeful for DC home in the next few days.
[2021-05-04 07:23] LABS: ALBUMIN 2.6 g/dL (3.4-5.0); DIRECT BILIRUBIN 0.1 mg/dL (0.0-0.2); TOTAL BILIRUBIN 0.1 mg/dL (0.2-1.0); TOTAL PROTEIN 6.1 g/dL (6.4-8.2)
[2021-05-04 07:24] LABS: ALBUMIN 2.6 g/dL (3.4-5.0); ALBUMIN/GLOBULIN RATIO 0.9 (1.0-1.7); CREATININE 0.8 mg/dL (0.7-1.3); POTASSIUM 4.3 mmol/L (3.5-5.1); TOTAL BILIRUBIN 0.1 mg/dL (0.2-1.0); TOTAL PROTEIN 5.6 g/dL (6.4-8.2)
--- NOTE | 2021-05-04 08:11 | PN ---
DATE: 05/03/2021 SUBJECTIVE: The patient is resting, slightly propped up in a prone position. On questioning him, he continued to have cough and shortness of breath; however, he is maintaining his oxygen saturation of 92% on 6 liters oxygen by nasal cannula, had no further episode of chills, rigors or fever. PHYSICAL EXAMINATION: GENERAL: When I examined him today, he looked well and was clearly in no apparent respiratory distress. No pallor, jaundice, cyanosis or thyromegaly. No jugular venous distention. No lower limb edema. VITAL SIGNS: Her heart rate was 93, blood pressure 145/73, temperature was 99, respiratory rate 27, and oxygen saturation was 92% on 6 liters of oxygen. The patient desaturates very quickly with any exertion. HEAD, EYES, EARS, NOSE, AND THROAT: Normocephalic, atraumatic. NECK: Supple. HEART: Showed normal first and second heart sounds, no gallop, rub or murmur. CHEST: Clear to auscultation. Showed central trachea, equal bilateral chest expansion, air entry, crepitation mostly on the right side posteriorly. I could not appreciate any rhonchi. ABDOMEN: Distended, soft, nontender. NEUROLOGIC: Grossly intact. His intake was 1200, no output was recorded. LABORATORY DATA: This morning showed a white cell count 4700, hemoglobin 12, hematocrit 37, MCV 83 and platelet count 109,000. His chemistry showed a serum sodium 142, potassium 4.1, chloride 106, bicarbonate 27, anion gap of 9, BUN 18, creatinine 0.9. Estimated GFR was 92 mL per minute. His glucose was 151, calcium was 8.1. Total bilirubin and alkaline phosphatase are normal. AST, ALT are elevated. White cell count was 6400, hemoglobin was 2.7. His TSH was high at 7.342. ASSESSMENT: In summary, this is a 46-year-old male patient who was admitted with acute hypoxic respiratory failure, COVID-19 pneumonia. He has also hypothyroidism with elevated TSH, deranged liver enzyme. Patient is known to have history of alcoholism and anger management problems. He has also history of suicidal attempts before and posttraumatic stress disorder. PLAN: My plan is to continue all his current medications including antibiotic in the form of Zithromax and ceftriaxone. Continue with dexamethasone. Continue with remdesivir. Continue with DVT prophylaxis. Continue with all his psychotropic medication. I will check his labs and also particularly his T3, T4 and free T4 and adjust his medication as needed. RENETTA/KARIS DR: Shraddha TID: [id number]
[2021-05-04] MEDS: ALBUTEROL SULFATE 8GM INHALER. INH SCH ×4 (09:00→20:05)
[2021-05-04] MEDS: BUDESONIDE 0.5 MG/2 ML NEBU NEB SCH ×3 (09:30→20:05)
[2021-05-04] MEDS: FAMOTIDINE 20 MG TABLET PO SCH ×2 (09:49→20:03)
[2021-05-04] MEDS: DEXAMETHASONE SOD PHOS 10 MG/ML VIAL. IV SCH (09:50)
[2021-05-04] MEDS: LISINOPRIL 20 MG TABLET PO SCH (09:51)
[2021-05-04] MEDS: ASPIRIN ENTERIC COATED 325 MG TABLET.DR. PO SCH (09:51)
[2021-05-04] MEDS: AZITHROMYCIN 250 MG TABLET. PO SCH (09:51)
[2021-05-04] MEDS: ASCORBIC ACID 1,000 MG TABLET PO SCH (09:51)
[2021-05-04] MEDS: SERTRALINE 50 MG TABLET. PO SCH (09:51)
[2021-05-04] MEDS: hydrOXYzine HCL 25 MG TABLET PO SCH ×3 (10:24→20:04)
[2021-05-04] MEDS: busPIRone 5 MG TABLET. PO SCH ×3 (10:24→20:04)
--- NOTE | 2021-05-04 17:59 | NUR ---
Nursing note: Pt alert and oriented x4, cooperative, pleasant most of shift. Pt occasionally frustrated with being attached to monitoring wires while trying to get out of bed to use bathroom. Pt stated he feels better today. Pt on ICU monitor, 5 LPM of oxygen nasal canula, vital signs stable, lung sounds improved toward the end of shift, had good appetite and normal BM x2, able to sponge bath self. Pt c/o "a little stomach upset" but refused warm pack/medication. Will continue to monitor pt's condition.
[2021-05-04] MEDS: REMDESIVIR 100mg in NORMAL SALINE 250ML X 4 DAYS IV SCH (20:03)
[2021-05-04] MEDS: ENOXAPARIN 40 MG/0.4 ML SYRINGE. SQ SCH (20:03)
[2021-05-04] MEDS: traZODone 100 MG TABLET. PO SCH (20:04)
[2021-05-04] MEDS: PRAZOSIN 1 MG CAPSULE. PO SCH (20:05)
--- NOTE | 2021-05-04 22:41 | PN ---
DATE: 05/04/2021 SUBJECTIVE: The patient is resting, slightly propped up in bed, in no apparent distress. Questioning him, he continued to have cough with scanty whitish to light blood-tinged sputum. Denied any chest pain or shortness of breath at rest. He continues to desaturate on exertion, however. PHYSICAL EXAMINATION: GENERAL: When I examined him, he looked well. He was pale, but no jaundice, cyanosis or thyromegaly. No jugular venous distention. No limb edema. VITAL SIGNS: Her heart rate was 108, blood pressure 145/79, temperature was 97.9, respiratory rate was 18, and oxygen saturation was 95% on 5 liters of oxygen by his cannula. HEAD, EARS, NOSE AND THROAT: Normocephalic, atraumatic. NECK: Supple. HEART: Showed normal first and second heart sounds, no gallop or murmur. CHEST: Shows central trachea, equal bilateral chest expansion, air entry, vesicular breath sounds with crepitation, mostly on the right side posteriorly. I could not appreciate any rhonchi. ABDOMEN: Distended, soft, nontender. NEUROLOGIC: He was grossly intact. His intake was 3050, output was 1200 as of this morning. LABORATORY DATA: As of yesterday, his white cell count was 4700, hemoglobin 12, hematocrit 37, MCV 83 and platelet count of 209,000 with normal manual differential. His chemistry this morning showed a serum sodium 143, potassium 4.3, chloride 109, bicarbonate 27, anion gap of 8, BUN 19, creatinine 0.9. Estimated GFR was 105 mL per minute. His glucose was 145, calcium was 8. Total bilirubin and alkaline phosphatase were normal. AST and ALT were slightly elevated, but stable. Total protein was 5.6, albumin was 2.6. His serum lipase was 113, although his TSH is high at 7.342. His free T4 was within normal range indicating that probably has compensated hypothyroidism. ASSESSMENT: 1. Acute hypoxic respiratory failure. 2. COVID-19 pneumonia. 3. Probably compensated hypothyroidism. 4. Alcoholism and anger management problem, apparently he has depression and multiple suicide attempts before and posttraumatic stress disorder. PLAN: To continue with all his medication including antibiotic in the form of Zithromax and ceftriaxone. Continue with dexamethasone and remdesivir. Continue with DVT prophylaxis. ЕЛЕНА/VALE DR: ЕЛЕНА/pepper TID: [id number]
[2021-05-05 05:38] LABS: THYROXINE 5.2 ug/dL (4.5-12.0)
[2021-05-05 06:10] VITALS: BP 146/91
[2021-05-05 06:23] LABS: HEMATOCRIT 35.9 % (39.0-53.0); HEMOGLOBIN 11.8 g/dL (13.0-17.5); RED BLOOD COUNT 4.37 x10^6/uL (4.30-5.70); RED CELL DISTRIBUTION WIDTH 13.5 % (11.5-14.5); WHITE BLOOD COUNT 7.6 x10^3/uL (4.0-11.0)
[2021-05-05 06:36] LABS: ALBUMIN 2.6 g/dL (3.4-5.0); ALBUMIN/GLOBULIN RATIO 0.7 (1.0-1.7); CALCIUM 8.3 mg/dL (8.5-10.1); CREATININE 0.8 mg/dL (0.7-1.3); POTASSIUM 4.3 mmol/L (3.5-5.1); TOTAL BILIRUBIN 0.2 mg/dL (0.2-1.0); TOTAL PROTEIN 6.1 g/dL (6.4-8.2)
[2021-05-05] MEDS: AZITHROMYCIN 250 MG TABLET. PO SCH (08:13)
[2021-05-05] MEDS: FAMOTIDINE 20 MG TABLET PO SCH ×2 (08:14→20:09)
[2021-05-05] MEDS: busPIRone 5 MG TABLET. PO SCH ×3 (08:15→20:10)
[2021-05-05] MEDS: ASPIRIN ENTERIC COATED 325 MG TABLET.DR. PO SCH (08:15)
[2021-05-05] MEDS: hydrOXYzine HCL 25 MG TABLET PO SCH ×3 (08:16→20:09)
[2021-05-05] MEDS: LISINOPRIL 20 MG TABLET PO SCH (08:16)
[2021-05-05] MEDS: SERTRALINE 50 MG TABLET. PO SCH (08:16)
[2021-05-05] MEDS: ALBUTEROL SULFATE 8GM INHALER. INH SCH ×4 (08:19→20:08)
[2021-05-05] MEDS: BUDESONIDE 0.5 MG/2 ML NEBU NEB SCH ×2 (08:19→19:55)
[2021-05-05] MEDS: DEXAMETHASONE SOD PHOS 10 MG/ML VIAL. IV SCH (08:21)
[2021-05-05] MEDS: ASCORBIC ACID 1,000 MG TABLET PO SCH (08:22)
[2021-05-05 11:00] VITALS: BP 130/70
[2021-05-05 18:02] VITALS: BP 144/78
[2021-05-05] MEDS: ENOXAPARIN 40 MG/0.4 ML SYRINGE. SQ SCH (20:08)
[2021-05-05] MEDS: PRAZOSIN 1 MG CAPSULE. PO SCH (20:09)
[2021-05-05] MEDS: traZODone 100 MG TABLET. PO SCH (20:09)
[2021-05-05] MEDS: ACETAMINOPHEN 325 MG TABLET PO PRN (20:10)
[2021-05-05] MEDS: REMDESIVIR 100mg in NORMAL SALINE 250ML X 4 DAYS IV SCH (20:51)
[2021-05-05 20:52] VITALS: BP 139/77
--- NOTE | 2021-05-05 21:51 | PN ---
DATE: 05/05/2021 SUBJECTIVE: The patient is resting, slightly propped up in bed, in no apparent distress, continued to have some cough and chest tightness, but denied any chills, rigors or fever. PHYSICAL EXAMINATION: GENERAL: When I examined him, he looked well and was clearly in no apparent respiratory distress. He was somewhat pale. No jaundice, cyanosis or thyromegaly. No jugular venous distention. No lower limb edema. VITAL SIGNS: His heart rate was 80, blood pressure is 146/91, temperature 97.4, respiratory rate 29 and oxygen saturation was 95-97% on 5 liters of oxygen. HEAD, EYES, EARS, NOSE, AND THROAT: Normocephalic, atraumatic. NECK: Supple. HEART: Showed normal first and second heart sounds. No gallop, rub or murmur. CHEST: Showed central trachea, equal bilateral chest expansion, air entry, vesicular breath sounds with crepitation, mostly on the right side posteriorly. He has few scattered rhonchi bilaterally. ABDOMEN: Soft, nontender. NEUROLOGIC: He was grossly intact. His intake over the last 24 hours was 3360, output was 1800. LABORATORY DATA: As of this morning, his white cell count was up to 7600, hemoglobin 12, hematocrit 36, MCV 82 and platelet count 299,000. His chemistry showed a serum sodium of 143, potassium was 4.3, chloride 108, bicarbonate 27, anion gap of 8, BUN 21, creatinine 0.8. Estimated GFR was 105 mL per minute. His glucose 117, calcium was 8.3. His total protein and alkaline phosphatase normal. AST is slightly elevated. Total protein 6.1, albumin was 2.6. His TSH was slightly elevated; however, his total T4 and free T4 are normal indicating that probably has compensated hypothyroidism. ASSESSMENT: 1. Acute hypoxic respiratory failure, currently on 5 liters of oxygen, maintaining his oxygen saturation at 95-97%. 2. COVID-19 pneumonia. 3. Probable community-acquired pneumonia. 4. Compensated hypothyroidism. 5. Alcoholism and anger management problem. 6. Depression with multiple suicidal attempts. 7. Posttraumatic stress disorder. PLAN: Obvious to continue with oxygen supplementation and titrate down as needed. Continue with Zithromax and ceftriaxone. Continue with dexamethasone and remdesivir. Continue with DVT. ЕЛЕНА/CAITLIN DR: ЕЛЕНА/pepper TID: [id number]
[2021-05-06 05:05] VITALS: BP 146/93
[2021-05-06 08:00] VITALS: BP 146/93
[2021-05-06] MEDS: ALBUTEROL SULFATE 8GM INHALER. INH SCH ×2 (09:00→13:00)
[2021-05-06] MEDS: LISINOPRIL 20 MG TABLET PO SCH (09:00)
[2021-05-06] MEDS: busPIRone 5 MG TABLET. PO SCH ×2 (10:47→14:00)
[2021-05-06] MEDS: FAMOTIDINE 20 MG TABLET PO SCH (10:47)
[2021-05-06] MEDS: SERTRALINE 50 MG TABLET. PO SCH (10:47)
[2021-05-06] MEDS: ASPIRIN ENTERIC COATED 325 MG TABLET.DR. PO SCH (10:48)
[2021-05-06] MEDS: hydrOXYzine HCL 25 MG TABLET PO SCH ×2 (10:48→14:00)
[2021-05-06] MEDS: AZITHROMYCIN 250 MG TABLET. PO SCH (10:48)
[2021-05-06] MEDS: DEXAMETHASONE SOD PHOS 10 MG/ML VIAL. IV SCH (10:49)
[2021-05-06] MEDS: BUDESONIDE 0.5 MG/2 ML NEBU NEB SCH (10:49)
[2021-05-06] MEDS: ASCORBIC ACID 1,000 MG TABLET PO SCH (10:50)
[2021-05-06 11:00] VITALS: BP 146/92
[2021-05-06] MEDS ORDERED: DEXA6TAB6 PO (11:32)
[2021-05-06] MEDS ORDERED: CEFD300C PO (11:32)
--- NOTE | 2021-05-06 11:52 | NUR ---
Patient is alert and oriented this am. Patient is reporting feeling better and was asking what his discharge plan was and when could he possibly be discharged. It was discussed with the patient that he may need oxygen support if discharged home soon as patient is currently on 3L NC with oxygen saturations averaging 92-94% patients O2 saturation does decrease with exertion to lower 90's upper 80's. Patient stated he would like to go home today if possible therefore this RN removed patients oxygen to determine patients oxygen needs and O2 saturations with and without oxygen. Patients oxygen saturations dropped to 86% on room air after a few minutes therefore oxygen was replaced at 3L NC and oxygen saturation returned to 93%. Dr. Dupree and Case management were notified of these findings. [facility].
--- NOTE | 2021-05-06 11:57 | DS ---
DATE OF DISCHARGE: 05/06/2021 HOSPITAL COURSE: The patient is a 46-year-old male patient who was admitted on 05/01/2021 through the Emergency Room with cough and shortness of breath. He was tested positive for COVID at [facility] and also Dr. Rebollar's office. His symptoms have worsened about 5 days prior to admission, developed cough, phlegm and shortness of breath. His temperature went up to 103 Fahrenheit. He came to the Emergency Room on 05/01/2021, was evaluated in the Emergency Room and was found to be hypoxic. D-dimer was slightly elevated. His chemistry was mostly unremarkable. He did have slightly elevated serum lipase and CT angio of the chest showed no evidence of pulmonary emboli. He does have multifocal airspace disease consistent with known COVID pneumonia. He was started on antibiotic in the form of Zithromax, ceftriaxone as well as dexamethasone and remdesivir as well as Lovenox together with other psychotropic medication. He did well and in fact he is now on room air, maintaining his oxygen saturation at 90-91%. However, he desaturates on exertion down to 86% on room air, and therefore, a decision was made to discharge him home with oxygen and will continue on oral antibiotic. He completed 5 days of Zithromax. He will continue on a 10-day course of dexamethasone and 7 days of cefdinir together with all his other psychotropic medication. PHYSICAL EXAMINATION: GENERAL: When I saw him this morning, he looked well and was clearly in no apparent respiratory distress. No pallor, jaundice, cyanosis or thyromegaly. No jugular venous distention. No lower limb edema. VITAL SIGNS: Her heart rate was 98, blood pressure is 146/92, temperature was 98.6, respiratory rate was 22 and oxygen saturation was 92% on room air. HEAD, EYES, EARS, NOSE, AND THROAT: Normocephalic, atraumatic. NECK: Supple. HEART: Showed normal first and second heart sounds. No gallop or murmur. CHEST: Shows central trachea, equal bilateral chest expansion, air entry, vesicular breath sounds, very few crepitation mostly on the right side posteriorly. I could not appreciate any rhonchi. ABDOMEN: Distended, soft, nontender. NEUROLOGIC: He was grossly intact. LABORATORY DATA: His lab work showed a white cell count 7600, hemoglobin 12, hematocrit 36, MCV 82 and platelet count of 298,000. Serum sodium was 143, potassium 4.3, chloride 108, bicarbonate 27, anion gap of 8, BUN 21, creatinine 0.8. Estimated GFR was 105 mL per minute. His glucose 117, calcium was 8.3. Total bilirubin and alkaline phosphatase are normal. AST, ALT slightly elevated, but trending down. Total protein 6.1, albumin was 2.6. Although the patient's TSH slightly elevated at 7.342, his free T4 and total T4 are within normal range, he probably has some form of decompensated hypothyroidism. DISCHARGE MEDICATIONS: The patient was discharged home to continue on cefdinir 300 mg twice a day for 7 days, dexamethasone 6 mg daily for 10 days, buspirone 7.5 mg 3 times a day, hydroxyzine 50 mg 3 times a day, lisinopril 20 mg daily, prazosin 2 mg at bedtime, sertraline for Zoloft 50 mg daily, and trazodone 100 mg at bedtime. FINAL DISCHARGE DIAGNOSES: 1. Acute hypoxic respiratory failure, currently on room air, maintaining his oxygen saturation at 90-92%. 2. COVID-19 pneumonia. 3. Probable community-acquired pneumonia. 4. Compensated hypothyroidism. 5. Alcoholism and anger management problem. 6. Depression, multiple suicidal attempts. 7. Posttraumatic stress disorder. ЕЛЕНА/LISA BANKS: Shraddha TID: [id number]
--- NOTE | 2021-05-06 14:37 | NUR ---
Discharge Note: [facility] 6 Discharge instructions and discharge home medications reviewed with Patient and a copy given. All questions have been answered and understanding verbalized. Home oxygen equipment and operational instructions were reviewed with patient with patient verbalizing understanding. Denise Porter CM confirmed that oxygen had been ordered and would be delivered to the patients home upon patients arrival to home. The following instructions and handouts were given: PE AND PNEUMONIA AND MEDICATIONS. Patient left the unit via wheelchair and was transported home via private vehicle by .
== END 2021-05-06 14:20 | disposition home or self-care (01) | DRG 177 ==
LOC: ER 17:40 → ICU 21:05
PROVIDERS: ADMIT Internal Medicine; ATTEND Internal Medicine
PROC: XW033E5 Introduction of Remdesivir Anti-infective into Peripheral Vein, Percutaneous Approach, New Technology Group 5 (ICD-10-PCS; principal; 2021-05-02)
PROC: 5A0945A Assistance with Respiratory Ventilation, 24-96 Consecutive Hours, High Flow/Velocity Cannula (ICD-10-PCS; 2021-05-02)
PROC: 5A0945A Assistance with Respiratory Ventilation, 24-96 Consecutive Hours, High Flow/Velocity Cannula (ICD-10-PCS; 2021-05-04)
DX: U07.1 COVID-19 (principal); J12.82 Pneumonia due to coronavirus disease 2019; J96.01 Acute respiratory failure with hypoxia; D64.9 Anemia, unspecified; D72.819 Decreased white blood cell count, unspecified; E03.9 Hypothyroidism, unspecified; F10.20 Alcohol dependence, uncomplicated; F32.A Depression, unspecified; F43.10 Post-traumatic stress disorder, unspecified; I10 Essential (primary) hypertension; R74.01 Elevation of levels of liver transaminase levels; R74.8 Abnormal levels of other serum enzymes; R79.89 Other specified abnormal findings of blood chemistry; R94.6 Abnormal results of thyroid function studies; Z82.49 Family history of ischemic heart disease and other diseases of the circulatory system; Z83.3 Family history of diabetes mellitus; Z87.442 Personal history of urinary calculi; Z91.51 Personal history of suicidal behavior
CPT/HCPCS: 36415; 36600; 71045; 71275; 80048; 80053; 80076; 80307; 81001; 82550; 82803; 83690; 83735; 83880; 84436; 84439; 84443; 84480; 84484; 85025; 85027; 85379; 85610; 85730; 87040; 93005; 94640; 96361; 96374; G0238; J0696; J0780; J1100; J1200; J1650; J1885; J2405; J7050; J7120; Q9967; 94664; 99285-25